=== PATIENT | male | born 1990 | race Caucasian/White ===

== ENCOUNTER 2020-04-26 15:29 | Emergency (ER) | payer OTHER ==
[~2020-04-26] VITALS: Ht 185.4 cm; Wt 100.0 kg
[2020-04-26] MEDS ORDERED: IBUPROFEN 800 MG TABLET PO ONE (17:00)
[2020-04-26 18:13] VITALS: BP 130/88
== END 2020-04-26 18:15 | disposition home or self-care (01) ==
LOC: EMS 15:29
DX: M79.89 Other specified soft tissue disorders (principal)
CPT/HCPCS: 29505; 99283